=== PATIENT | female | born 1980 | race Caucasian/White ===

== ENCOUNTER 2016-07-20 17:37 | Day surgery (SDC) | payer MEDICAID ==
[~2016-07-20 17:37] MED LIST: SUCCINYLCHOLINE CHLORIDE INJ 200 MG/10 ML VIAL ONE
--- NOTE | 2016-07-20 17:45 | ER Document Report ---
ED GI/ - General Mode of Arrival: Medic Information source: Patient, Emergency Med Personnel TRAVEL OUTSIDE OF THE U.[place] IN LAST 30 DAYS: No - HPI Patient complains to provider of: Vaginal bleeding Associated symptoms: Other - See above <MAY ROSS - Last Filed: 07/20/16 18:35> <BRAYANADRIENNE - Last Filed: 07/20/16 18:54> - General Chief Complaint: Vag Bleeding, +preg <12wks Stated Complaint: vaginal bleeding Notes: Patient is a 35 year old female who presents to the emergency department via EMS for heavy vaginal bleeding while . Patient reports she was at the Ob 5 days ago and was told the fetus had stopped growing at 6 weeks in uterus, had no heartbeat, and she was going to have a natural miscarriage, patient was given rhogam. Per EMS, patient has stated she started spotting about 2 days ago and today she had bent over to berry picker her 5 month old child and felt wetness, when she went to the bathroom she started passing clots. EMS state she was still actively bleeding en route and that they did not notice any tissue passing nor did they see any tissue in the patient's toilet. EMS report patient' s color has improved and her BP has risen. Patient complains of feeling tired and cold. Patient had a miscarriage last year that did not require a D&C and she gave 5 months ago. COMMUNITY HEALTH PROGRAM REPRESENTATIVE: Dr. Rojas (MAY ROSS) - Related Data Allergies/Adverse Reactions: No Known Allergies Allergy (Verified 02/05/16 22:14) Past Medical History - General Information source: Patient - Social History Smoking Status: Current Every Day Smoker Frequency of alcohol use: None Family History: Reviewed & Not Pertinent Pulmonary Medical History: Reports: Hx Asthma - Immunizations Hx Diphtheria, Pertussis, Tetanus Vaccination: Yes <MYA ROSS - Last Filed: 07/20/16 18:35> Review of Systems - Review of Systems Constitutional: See HPI, Weakness - tired, Other - cold EENT: No symptoms reported Cardiovascular: No symptoms reported Respiratory: No symptoms reported Gastrointestinal: No symptoms reported Genitourinary: No symptoms reported Female Genitourinary: No symptoms reported Musculoskeletal: No symptoms reported Skin: No symptoms reported Hematologic/Lymphatic: No symptoms reported Neurological/Psychological: No symptoms reported -: Yes All other systems reviewed and negative <MAY ROSS - Last Filed: 07/20/16 18:35> Physical Exam - Vital signs Interpretation: Hypotensive, Tachycardic - HEENT Head: Normocephalic, Atraumatic - Respiratory Respiratory status: No respiratory distress - Cardiovascular Rhythm: Tachycardia - Genitourinary Vaginal bleeding: Heavy - Large clots with no tissue, patient actively hemorrhaging during exam, osce is about 1cm open. Concern for hemorrhagic shock - Extremities General upper extremity: Normal inspection General lower extremity: Normal inspection - Neurological Neuro grossly intact: Yes Cognition: Normal Orientation: AAOx4 [place] Coma Scale Eye Opening: Spontaneous [place] Coma Scale Verbal: Oriented [place] Coma Scale Motor: Obeys Commands [place] Coma Scale Total: 15 Speech: Normal - Psychological Associated symptoms: Normal affect, Normal mood <MAY ROSS - Last Filed: 07/20/16 18:35> <ADRIENNE SCHMIDT - Last Filed: 07/20/16 18:54> - Vital signs Vitals: Resp Pulse Ox 15 96 07/20/16 18:04 07/20/16 18:04 (ADRIENNE SCHMIDT) Course - Laboratory Result Diagrams: 07/20/16 17:45 07/20/16 17:45 <MAY ROSS - Last Filed: 07/20/16 18:35> - Laboratory Result Diagrams: 07/20/16 17:45 07/20/16 17:45 <ADRIENNE SCHMIDT - Last Filed: 07/20/16 18:54> - Re-evaluation Re-evalutation: 07/20/16 18:50 Patient is actively hemorrhaging with large clots emergency department. This all started about one hour prior to arrival. She has 12 week gestation which reportedly stopped growing at 6 weeks with no heart rate. She was going to miscarry "naturally"at home. When she started passing blood and clots she called 911. Vaginal vault full with large clots and brisk bleeding. Patient is hypotensive. H&H is currently stable. Getting IV fluids. According to patient she has already received Rhogam 5 days ago. I have called Dr. Lucio who is on- call for OB and is also this patient's INTERACTIVE MEDIA PROJECT MANAGER. She is coming directly to the ED for evaluation and will take the patient to the OR for D&C. (ADRIENNE SCHMIDT) - Vital Signs Vital signs: Temp Pulse Resp BP Pulse Ox 14 81/44 L 98 07/20/16 18:08 07/20/16 18:08 07/20/16 18:08 (ADRIENNE SCHMIDT) - Laboratory Laboratory results interpreted by me: 07/20/16 17:45 Carbon Dioxide 21 L (ADRIENNE SCHMIDT) Critical Care Note <MAY ROSS - Last Filed: 07/20/16 18:35> - Critical Care Note Total time excluding time spent on procedures (mins): 40 <ADRIENNE SCHMIDT - Last Filed: 07/20/16 18:54> - Critical Care Note Comments: A total of 40 minutes with concern for hemorrhagic shock secondary to spontaneous . Significant time at bedside evaluating patient, managing hemodynamic status, consultation with INTERACTIVE MEDIA PROJECT MANAGER, review of records, labs, and counseling patient and family. (ADRIENNE SCHMIDT) Discharge <MAY ROSS - Last Filed: 07/20/16 18:35> - Discharge Admitting Provider: Khadijah Unit Admitted: OR <ADRIENNE SCHMIDT - Last Filed: 07/20/16 18:54> - Discharge Clinical Impression: complicated with hemorrhage Condition: Serious Disposition: ADMITTED INPATIENT Scribe Attestation: 07/20/16 18:53 I personally performed the services described in the documentation, reviewed and edited the documentation which was dictated to the scribe in my presence, and it accurately records my words and actions. (ADRIENNE SCHMIDT) Scribe Documentation - Scribe Written by Linn:: linn Jennings, 07/20/16, [id number] acting as scribe for :: Dr Suárez <MAY ROSS - Last Filed: 07/20/16 18:35>
[2016-07-20] MEDS ORDERED: NORMAL SALINE 1000 ML 1,000 ML IV ONE ×2 (17:48→18:28)
[2016-07-20 18:00] LABS: ABSOLUTE BASOPHILS # (AUTO) 0.1 10^3/uL (0.0-0.2); ABSOLUTE EOSINOPHILS # (AUTO) 0.1 10^3/uL (0.0-0.6); ABSOLUTE LYMPHOCYTES (AUTO) 2.3 10^3/uL (0.5-4.7); ABSOLUTE MONOCYTES (AUTO) 0.7 10^3/uL (0.1-1.4); ABSOLUTE NEUT (AUTO) 5.4 10^3/uL (1.7-8.2); BASOPHILS % (AUTO) 0.6 % (0-2); EOSINOPHILS % (AUTO) 0.7 % (0-6); HEMOGLOBIN 12.1 g/dL (12.0-15.5); HGB HCT DIFFERENCE 0.3; LYMPHOCYTES % (AUTO) 27.3 % (13-45); MEAN CORPUSCULAR HEMOGLOBIN 30.9 pg (27.0-33.4); MEAN CORPUSCULAR HGB CONC 33.5 g/dL (32.0-36.0); MEAN CORPUSCULAR VOLUME 92 fl (80-97); MONOCYTES % (AUTO) 7.9 % (3-13); RED BLOOD COUNT 3.91 10^6/uL (3.72-5.28); SEGMENTED NEUTROPHILS % (AUTO) 63.5 % (42-78); WHITE BLOOD COUNT 8.4 10^3/uL (4.0-10.5)
[2016-07-20] MEDS ORDERED: ONDANSETRON HCL INJ/PF 4 MG/2 ML SDV ONE ×2 (18:03→18:47)
[2016-07-20 18:17] LABS: ANION GAP 12 (5-19); BLOOD UREA NITROGEN 8 mg/dL (7-20); CALCIUM 9.4 mg/dL (8.4-10.2); CARBON DIOXIDE 21 mmol/L (22-30); CHLORIDE 106 mmol/L (98-107); CREATININE RESULT 0.62 mg/dL (0.52-1.25); GLUCOSE 94 mg/dL (75-110); POTASSIUM 4.1 mmol/L (3.6-5.0); SODIUM 138.9 mmol/L (137-145)
[2016-07-20] MEDS ORDERED: MIDAZOLAM 2 MG/2 ML INJ ONE (18:47)
[2016-07-20] MEDS ORDERED: HYDROMORPHONE HCL INJ/PF 2 MG/ML AMPULE ONE (18:47)
[2016-07-20] MEDS ORDERED: DEXAMETHASONE SOD PHOSPHATE INJ 4 MG/1 ML VIAL ONE (18:48)
[2016-07-20] MEDS ORDERED: ACETAMINOPHEN 0 ML IV ONE (18:48)
[2016-07-20] MEDS ORDERED: PROPOFOL INJ 200 MG/20 ML VIAL IV ONE (18:48)
[2016-07-20] MEDS ORDERED: MISOPROSTOL 0.1 MG TABLET ONE (18:53)
[2016-07-20] MEDS ORDERED: NORMAL SALINE 250 ML IV PRN (18:56)
[2016-07-20] MEDS ORDERED: MORPHINE SULFATE 10 MG/ML INJ ONE (18:56)
[2016-07-20] MEDS ORDERED: CEFAZOLIN INJ 1 GM VIAL ONE (19:25)
[2016-07-20] MEDS ORDERED: PROMETHAZINE HCL INJ 25 MG/1 ML VIAL IV PRN ×2 (20:01)
[2016-07-20] MEDS ORDERED: FENTANYL CITRATE INJ/PF 100 MCG/2 ML AMPUL IV PRN ×3 (20:01)
[2016-07-20] MEDS ORDERED: MEPERIDINE HCL/PF INJ 25 MG/1 ML DISP.SYRIN IV PRN (20:01)
[2016-07-20] MEDS ORDERED: DIPHENHYDRAMINE HCL 50 MG/ML VIAL IV PRN (20:01)
[2016-07-20] MEDS ORDERED: OXYCODONE-ACETAMINOPHEN 5-325 MG TABLET PO PRN ×2 (20:01)
[2016-07-20] MEDS ORDERED: MORPHINE SULFATE 10 MG/ML INJ IV PRN (20:01)
[2016-07-20] MEDS ORDERED: ONDANSETRON HCL INJ/PF 4 MG/2 ML SDV IV PRN (20:01)
[2016-07-20 20:22] LABS: ABSOLUTE BASOPHILS # (AUTO) 0.1 10^3/uL (0.0-0.2); ABSOLUTE LYMPHOCYTES (AUTO) 1.4 10^3/uL (0.5-4.7); ABSOLUTE MONOCYTES (AUTO) 0.6 10^3/uL (0.1-1.4); ABSOLUTE NEUT (AUTO) 13.8 10^3/uL (1.7-8.2); BASOPHILS % (AUTO) 0.5 % (0-2); EOSINOPHILS % (AUTO) 0.1 % (0-6); HEMATOCRIT 27.9 % (36.0-47.0); HGB HCT DIFFERENCE -0.3; LYMPHOCYTES % (AUTO) 9.1 % (13-45); MEAN CORPUSCULAR HEMOGLOBIN 30.8 pg (27.0-33.4); MEAN CORPUSCULAR HGB CONC 33.1 g/dL (32.0-36.0); MEAN CORPUSCULAR VOLUME 93 fl (80-97); MONOCYTES % (AUTO) 3.6 % (3-13); RED CELL DISTRIBUTION WIDTH 13.8 % (11.5-14.0); SEGMENTED NEUTROPHILS % (AUTO) 86.7 % (42-78); WHITE BLOOD COUNT 15.9 10^3/uL (4.0-10.5)
[2016-07-20 20:30] LABS: HEMOGLOBIN 9.2 g/dL (12.0-15.5)
[2016-07-20 20:35] LABS: PARTIAL THROMBOPLASTIN TIME 24.2 SEC (23.5-35.8)
[2016-07-20] MEDS ORDERED: RINGERS SOLUTION,LACTATED 1,000 ML IV PRN (22:14)
[2016-07-21] MEDS ORDERED: IBUPROFEN 800 MG TABLET PO PRN (05:31)
[2016-07-21 05:53] LABS: HEMATOCRIT 23.5 % (36.0-47.0); HGB HCT DIFFERENCE 0.2; MEAN CORPUSCULAR HEMOGLOBIN 30.6 pg (27.0-33.4); MEAN CORPUSCULAR HGB CONC 33.5 g/dL (32.0-36.0); MEAN CORPUSCULAR VOLUME 91 fl (80-97); RED BLOOD COUNT 2.57 10^6/uL (3.72-5.28); RED CELL DISTRIBUTION WIDTH 13.9 % (11.5-14.0); WHITE BLOOD COUNT 9.1 10^3/uL (4.0-10.5)
[2016-07-21 05:55] LABS: HEMOGLOBIN 7.9 g/dL (12.0-15.5)
--- NOTE | 2016-07-21 07:08 | DISCHARGE SUMMARY E ---
Discharge Summary NAME: EARLE MARKHAM : 1980 AGE: 35Y ADMITTED: 07/20/2016 DISCHARGED: 07/21/2016 INDICATION FOR ADMISSION: Incomplete with hemorrhage and acute blood loss. HOSPITAL COURSE: The patient is a 35-year-old, para 2, who was admitted with an incomplete AB hemorrhaging. She had a vagal episode and was taken to the operating room and Suction D and C was performed. She was observed closely postop due to her volume of blood that she lost preoperatively. On admission, her hematocrit had been 36 and immediately postop it was 27.9. The following morning hematocrit was 23.5. However, the patient was able to ambulate without any lightheadedness or dizziness. She noted that her bleeding was scant. She denied any shortness of breath. She was tolerating p.o without any nausea or vomiting. PT/PTT had been obtained immediately postop as well and they were within normal range. DISCHARGE DIAGNOSES: 1. Incomplete status post suction dilation and curettage for acute hemorrhage. 2. Acute blood loss anemia. PLAN: The patient will be discharged home. She has Motrin 800 mg at home that she can take up to 3 times a day for cramping. She is given a prescription for doxycycline 100 mg p.o. b.i.d. for 5 days. She is advised to follow up in clinic 2 weeks, sooner should problems arise. ACTIVITY: Pelvic rest. DIET: Regular. She should also be on dftl-fun-roxccgb iron. DICTATING PHYSICIAN: BLANQUITA CALHOUN M.D. [id number] PHY#: [id number] [id number] JOB#: [id number] ACCT: [id number] cc:BLANQUITA CALHOUN M.D. > MTDSerg
[2016-07-21 08:10] VITALS: BP 115/51
[2016-07-21] MEDS ORDERED: DOXYCYCLINE HYCLATE 100 MG TABLET PO SCH (10:00)
--- NOTE | 2016-07-21 10:46 | L&D Admission Assessment ---
LD ADM ASMT Datetime Report Generated by CPN: 07/21/2016 10:45 WEIGHT Weight (lb): 213 (07/21/2016 08:19:QS system process) Weight (lb): 213 (07/21/2016 08:17:QS system process) Weight (kg): 96.8 (07/21/2016 08:19:QS system process) Weight (kg): 96.8 (07/21/2016 08:17:QS system process) BMI: 37.7 (07/21/2016 08:19:QS system process)
--- NOTE | 2016-07-21 10:46 | L&D General Admission ---
General Admit Datetime Report Generated by CPN: 07/21/2016 10:45 INFORMATION Patient Age: 35 (07/21/2016 08:17:QS system process) CARE Height (in): 63 (07/21/2016 08:19:QS system process) Height (in): 63 (07/21/2016 08:17:QS system process) ALLERGIES Medication Allergies: No Known Allergies (02/05/2016) (07/21/2016 08:17:QS system process) DEMOGRAPHICS Address: [address] [place] [id number] (07/21/2016 08:17:QS system process) Zipcode: [id number] (07/21/2016 08:17:QS system process) Home (07/21/2016 08:17:QS system process) N: [id number] (07/21/2016 08:17:QS system process) Next of Kin Name: KAYLAH MARKHAM (07/21/2016 08:17:QS system process) Next of Kin (07/21/2016 08:17:QS system process) Next of Kin Relationship: SPO (07/21/2016 08:17:QS system process) Date of : 1980 (07/21/2016 08:17:QS system process) Marital Status: (07/21/2016 08:17:QS system process) Sex: Female (07/21/2016 08:17:QS system process) Race: (07/21/2016 08:17:QS system process) Ethnicity: Non- or (07/21/2016 08:17:QS system process) Uatsdin: None (07/21/2016 08:17:QS system process)
--- NOTE | 2016-07-22 14:34 | OPERATIVE REPORT E ---
Operative Report NAME: EARLE MARKHAM : 1980 AGE: 35Y DATE OF SURGERY: ROOM: 210 PREOPERATIVE DIAGNOSIS: Incomplete AB with hemorrhage and acute blood loss. POSTOPERATIVE DIAGNOSIS: Incomplete AB with hemorrhage and acute blood loss. OPERATION: Suction D and C. SURGEON: BLANQUITA CALHOUN M.D. ANESTHESIA: General endotracheal. ESTIMATED BLOOD LOSS: Patient had lost approximately 1500 mL in the emergency room prior to the procedure. EBL during the procedure was minimal. FINDINGS: The cervix was open. There were products of conception in the cervix and uterus. At the end of the procedure the uterus was clean and involuted normally. DESCRIPTION OF PROCEDURE: After discussing risks, benefits, and alternatives of the procedure and obtaining informed verbal consent, the patient was taken to the operating room. She had lost consciousness in the emergency room prior to signing the consent. She was moved to the operating room table, placed in the dorsal lithotomy and general anesthesia achieved. She was prepped and draped in the usual standard fashion. A speculum was placed in the vagina. The cervix was opened. The anterior aspect of the cervix was grasped with a single tooth tenaculum. The #8 curved curette was attached to suction and suction D and C was performed in the standard fashion until the cavity was clean. The uterus involuted normally by the end of the procedure. All instruments were removed, hemostasis was assured and patient was taken to recovery in stable condition. All sponge, needle, lap, and instrument counts were correct x2. DICTATING PHYSICIAN: BLANQUITA CALHOUN M.D. [id number] PHY#: [id number] ID: [id number] JOB#: [id number] ACCT: [id number] cc:BLANQUITA CALHOUN M.D. > MTDSerg
== END 2016-07-21 08:52 | disposition home or self-care (01) ==
LOC: LC 17:37 → ER 17:37 → UNDOADMIN 19:28 → EH 19:28 → 2N 19:40 → EH 21:10 → LC 07-21 08:52
PROVIDERS: ATTEND Emergency Medicine
PROC: 10D17ZZ Extraction of Products of Conception, Retained, Via Natural or Artificial Opening (ICD-10-PCS; principal; 2016-07-20 19:30)
DX: O02.1 Missed abortion (principal); O08.1 Delayed or excessive hemorrhage following ectopic and molar pregnancy; D62 Acute posthemorrhagic anemia; J45.20 Mild intermittent asthma, uncomplicated; F17.210 Nicotine dependence, cigarettes, uncomplicated
CPT/HCPCS: 59820; 86900; 86901; 36415; 86870; 86850; 86922; 85025; 85027; 85610; 85730; 80048; 86920; 88305 ×2; J2250; J0690; J3490 ×2; J1100; J2270; J1170; J0330; J2405; J7030; J7120; J2704; 1965; J0131

== ENCOUNTER 2016-07-22 10:20 | Emergency (ER) | payer MEDICAID ==
--- NOTE | 2016-07-22 10:35 | ER Document Report ---
ED Medical Screen (RME) - General Stated Complaint: STOMACH PAIN Notes: Patient is a 35 old female history here [address] Lucio for spontaneous requiring D&C. Patient is tachycardic with myalgias and was referred here by Dr. Lucio. I have greeted and performed a rapid initial assessment of this patient. A comprehensive ED assessment and evaluation of the patient, analysis of test results and completion of the medical decision making process will be conducted by additional ED providers. TRAVEL OUTSIDE OF THE U.[place] IN LAST 30 DAYS: No - Related Data Allergies/Adverse Reactions: No Known Allergies Allergy (Verified 02/05/16 22:14) Past Medical History Pulmonary Medical History: Reports: Hx Asthma - Immunizations Hx Diphtheria, Pertussis, Tetanus Vaccination: Yes
[2016-07-22 11:22] LABS: HEMATOCRIT 23.3 % (36.0-47.0); HGB HCT DIFFERENCE -0.2; MEAN CORPUSCULAR HEMOGLOBIN 31.2 pg (27.0-33.4); MEAN CORPUSCULAR HGB CONC 33.2 g/dL (32.0-36.0); MEAN CORPUSCULAR VOLUME 94 fl (80-97); RED BLOOD COUNT 2.47 10^6/uL (3.72-5.28); RED CELL DISTRIBUTION WIDTH 14.3 % (11.5-14.0); WHITE BLOOD COUNT 7.8 10^3/uL (4.0-10.5)
[2016-07-22 11:26] LABS: HEMOGLOBIN 7.7 g/dL (12.0-15.5)
[2016-07-22 11:28] LABS: BASOPHILS % (MANUAL) 0 % (0-2); EOSINOPHILS % (MANUAL) 0 % (0-6); LYMPHOCYTES % (MANUAL) 37 % (13-45); TOTAL CELLS COUNTED 100
[2016-07-22 11:29] LABS: RBC MORPHOLOGY COMMENT NORMO-CYTIC/CHROMIC
[2016-07-22 11:37] LABS: ALANINE AMINOTRANSFERASE 28 U/L (9-52); ALBUMIN 3.5 g/dL (3.5-5.0); ALKALINE PHOSPHATASE 40 U/L (38-126); ANION GAP 11 (5-19); ASPARTATE AMINO TRANSFERASE 17 U/L (14-36); BILIRUBIN,TOTAL 0.2 mg/dL (0.2-1.3); BLOOD UREA NITROGEN 11 mg/dL (7-20); CALCIUM 9.2 mg/dL (8.4-10.2); CARBON DIOXIDE 24 mmol/L (22-30); CHLORIDE 109 mmol/L (98-107); CREATINE KINASE 83 U/L (30-135); CREATININE RESULT 0.64 mg/dL (0.52-1.25); GLUCOSE 91 mg/dL (75-110); POTASSIUM 3.9 mmol/L (3.6-5.0); TOTAL PROTEIN 6.3 g/dL (6.3-8.2)
[2016-07-22] MEDS ORDERED: NORMAL SALINE 250 ML IV PRN ×2 (12:33)
[2016-07-22] MEDS ORDERED: DOXYCYCLINE HYCLATE 100 MG TABLET PO ONE (12:57)
[2016-07-22] MEDS ORDERED: KETOROLAC TROMETHAMINE INJ/PF 30 MG/1 ML SDV IV ONE (14:41)
--- NOTE | 2016-07-22 15:47 | ER Document Report ---
ED General - General Chief Complaint: Abdominal Pain Stated Complaint: STOMACH PAIN TRAVEL OUTSIDE OF THE [place] IN LAST 30 DAYS: No - HPI Patient complains to provider of: diffuse myalgias generalized weakness Onset: Yesterday Notes: Patient coming in for evaluation for generalized weakness and diffuse myalgias. Patient had a D and see performed on Friday prior to her arrival here. Patient was discharged told to return due to her symptoms. Patient denies fevers chills nausea vomiting. Patient states that her labia have swollen. Otherwise patient is tachycardic and pale. Patient states that the bleeding has improved. - Related Data Allergies/Adverse Reactions: No Known Allergies Allergy (Verified 07/22/16 10:38) Past Medical History - Social History Smoking Status: Current Every Day Smoker Chew tobacco use (# tins/day): No Frequency of alcohol use: None Drug Abuse: None Family History: Reviewed & Not Pertinent Patient has suicidal ideation: No Patient has homicidal ideation: No Pulmonary Medical History: Reports: Hx Asthma Renal/ Medical History: Denies: Hx Peritoneal Dialysis Past Surgical History: Reports: Hx Hysterectomy - Immunizations Hx Diphtheria, Pertussis, Tetanus Vaccination: Yes Review of Systems - Review of Systems Constitutional: No symptoms reported EENT: No symptoms reported Cardiovascular: No symptoms reported Respiratory: No symptoms reported Gastrointestinal: No symptoms reported Genitourinary: Other - Vaginal pain Female Genitourinary: No symptoms reported Musculoskeletal: Muscle pain Skin: No symptoms reported Hematologic/Lymphatic: No symptoms reported Neurological/Psychological: No symptoms reported -: Yes All other systems reviewed and negative Physical Exam - Vital signs Vitals: Temp Pulse Resp BP Pulse Ox 98.3 F 113 H 18 134/73 H 100 07/22/16 10:38 07/22/16 10:38 07/22/16 10:38 07/22/16 10:38 07/22/16 10:38 Interpretation: Tachycardic - General General appearance: Appears well, Alert - HEENT Head: Normocephalic, Atraumatic Eyes: Normal Pupils: PERRL - Respiratory Respiratory status: No respiratory distress Chest status: Nontender Breath sounds: Normal Chest palpation: Normal - Cardiovascular Rhythm: Regular Heart sounds: Normal auscultation Murmur: No - Abdominal Inspection: Normal Distension: No distension Bowel sounds: Normal Tenderness: Nontender Organomegaly: No organomegaly - Genitourinary External exam: Other - Swelling of bilateral labia signs of abscess or infection Speculum exam: Other - Mild amount of bleeding Vaginal bleeding: Mild - Back Back: Normal, Nontender - Extremities General upper extremity: Normal inspection, Nontender, Normal color, Normal ROM , Normal temperature General lower extremity: Normal inspection, Nontender, Normal color, Normal ROM , Normal temperature, Normal weight bearing. No: Corona's sign - Neurological Neuro grossly intact: Yes Cognition: Normal Orientation: AAOx4 [place] Coma Scale Eye Opening: Spontaneous [place] Coma Scale Verbal: Oriented [place] Coma Scale Motor: Obeys Commands [place] Coma Scale Total: 15 Speech: Normal Motor strength normal: LUE, RUE, LLE, RLE Sensory: Normal - Psychological Associated symptoms: Normal affect, Normal mood - Skin Skin Temperature: Warm Skin Moisture: Dry Skin Color: Pale Course - Re-evaluation Re-evalutation: 07/22/16 15:46 Lab results showed anemia with hemoglobin 7.7. Discussed with the patient's OB/ COLLEGE SPORTS ASSISTANT Dr. Catalina Lucio. Patient will be given 2 units of blood. Patient also be given a dose of ketorolac for myalgias more likely this is from the surgery. No signs of any infection of the patient's genitalia. Patient will be discharged home after transfusion - Vital Signs Vital signs: Temp Pulse Resp BP Pulse Ox 98.7 F 98 21 H 111/66 97 07/22/16 14:50 07/22/16 14:50 07/22/16 15:01 07/22/16 15:01 07/22/16 15:01 - Laboratory Result Diagrams: 07/22/16 10:55 07/22/16 10:55 Laboratory results interpreted by me: 07/22/16 07/22/16 07/22/16 10:55 10:55 10:55 RBC 2.47 L Hgb 7.7 L Hct 23.3 L RDW 14.3 H Chloride 109 H Crossmatch See Detail Discharge - Discharge Clinical Impression: Anemia requiring transfusions, Myalgia Condition: Good Disposition: HOME, SELF-CARE Instructions: Myalagia (Muscle Pain) ([facility]), Anemia ([facility]) Additional Instructions: Please follow-up with your PELLETISING EXTRUDER OPERATOR as scheduled. Your laboratory studies showed anemia today despite he gave you 2 units of blood. Return to ER for concerning symptoms.
[2016-07-22 20:18] VITALS: BP 105/48
== END 2016-07-22 20:25 | disposition home or self-care (01) ==
LOC: ER 10:20
DX: D64.9 Anemia, unspecified (principal); M79.1 Myalgia; R53.1 Weakness; R10.2 Pelvic and perineal pain; R00.0 Tachycardia, unspecified; Z98.890 Other specified postprocedural states; F17.200 Nicotine dependence, unspecified, uncomplicated; J45.909 Unspecified asthma, uncomplicated; Z90.710 Acquired absence of both cervix and uterus
CPT/HCPCS: 99285; 96374; 86900; 86901; 36415; 87210; 36430; 86870; 86850; 86922; 82550; 85025; 80053; 86920; P9016; J3490; J1885

== ENCOUNTER 2016-07-24 12:52 | Emergency (ER) | payer MEDICAID ==
--- NOTE | 2016-07-24 13:10 | ER Document Report ---
ED Medical Screen (RME) - General Stated Complaint: HEADACHE Notes: 35 yo female c/o headache since last night. pt had emergency D&C on Friday, came back on Friday for blood trasfusions. minimal vaginal bleeding. + dizzy with postural changes TRAVEL OUTSIDE OF THE [place] IN LAST 30 DAYS: No - Related Data Allergies/Adverse Reactions: No Known Allergies Allergy (Verified 07/22/16 10:38) Past Medical History Pulmonary Medical History: Reports: Hx Asthma Renal/ Medical History: Denies: Hx Peritoneal Dialysis Past Surgical History: Reports: Hx Hysterectomy - Immunizations Hx Diphtheria, Pertussis, Tetanus Vaccination: Yes Physical Exam - Vital signs Vitals: Temp Pulse Resp BP Pulse Ox 98.9 F 99 16 134/88 H 100 07/24/16 13:03 07/24/16 13:03 07/24/16 13:03 07/24/16 13:03 07/24/16 13:03 Course - Vital Signs Vital signs: Temp Pulse Resp BP Pulse Ox 98.9 F 99 16 134/88 H 100 07/24/16 13:03 07/24/16 13:03 07/24/16 13:03 07/24/16 13:03 07/24/16 13:03
[2016-07-24 13:36] LABS: ABSOLUTE EOSINOPHILS # (AUTO) 0.1 10^3/uL (0.0-0.6); ABSOLUTE LYMPHOCYTES (AUTO) 1.9 10^3/uL (0.5-4.7); ABSOLUTE MONOCYTES (AUTO) 0.5 10^3/uL (0.1-1.4); ABSOLUTE NEUT (AUTO) 4.9 10^3/uL (1.7-8.2); BASOPHILS % (AUTO) 0.4 % (0-2); EOSINOPHILS % (AUTO) 0.9 % (0-6); HEMATOCRIT 27.1 % (36.0-47.0); HEMOGLOBIN 9.3 g/dL (12.0-15.5); HGB HCT DIFFERENCE 0.8; LYMPHOCYTES % (AUTO) 25.6 % (13-45); MEAN CORPUSCULAR HEMOGLOBIN 31.6 pg (27.0-33.4); MEAN CORPUSCULAR HGB CONC 34.5 g/dL (32.0-36.0); MEAN CORPUSCULAR VOLUME 92 fl (80-97); MONOCYTES % (AUTO) 6.5 % (3-13); RED BLOOD COUNT 2.96 10^6/uL (3.72-5.28); RED CELL DISTRIBUTION WIDTH 14.4 % (11.5-14.0); SEGMENTED NEUTROPHILS % (AUTO) 66.6 % (42-78); WHITE BLOOD COUNT 7.4 10^3/uL (4.0-10.5)
--- NOTE | 2016-07-24 16:11 | ER Document Report ---
ED General - General Chief Complaint: Headache Stated Complaint: HEADACHE TRAVEL OUTSIDE OF THE [place] IN LAST 30 DAYS: No - HPI Patient complains to provider of: headache lightheadedness dizziness Notes: Patient coming in for evaluation of headache lightheaded dizziness. Patient was recently underwent a D&C and blood transfusion. Patient states symptoms return similar to prior before receiving the blood transfusion. Patient states she was referred to the ER by her EMPLOYEE RELATIONS ADMINISTRATOR. Denies any fevers chills nausea vomiting diarrhea chest pain abdominal pain. Otherwise patient states most of her symptoms occur when she exerts hurting himself. Patient states chills as the sound of her heartbeat with in her ear. - Related Data Allergies/Adverse Reactions: No Known Allergies Allergy (Verified 07/24/16 13:07) Past Medical History - Social History Smoking Status: Current Every Day Smoker Chew tobacco use (# tins/day): No Frequency of alcohol use: None Drug Abuse: None Family History: Reviewed & Not Pertinent Patient has suicidal ideation: No Patient has homicidal ideation: No Pulmonary Medical History: Reports: Hx Asthma Renal/ Medical History: Denies: Hx Peritoneal Dialysis Past Surgical History: Reports: Hx Hysterectomy - Immunizations Hx Diphtheria, Pertussis, Tetanus Vaccination: Yes Review of Systems - Review of Systems Constitutional: Other - Dizziness headache EENT: No symptoms reported Cardiovascular: No symptoms reported Respiratory: No symptoms reported Gastrointestinal: No symptoms reported Genitourinary: No symptoms reported Female Genitourinary: No symptoms reported Musculoskeletal: No symptoms reported Skin: No symptoms reported Hematologic/Lymphatic: No symptoms reported Neurological/Psychological: No symptoms reported -: Yes All other systems reviewed and negative Physical Exam - Vital signs Vitals: Temp Pulse Resp BP Pulse Ox 98.9 F 99 16 134/88 H 100 07/24/16 13:03 07/24/16 13:03 07/24/16 13:03 07/24/16 13:03 07/24/16 13:03 Interpretation: Normal - General General appearance: Appears well, Alert - HEENT Head: Normocephalic, Atraumatic Eyes: Normal Conjunctiva: Normal Cornea: Normal Eyelashes: Normal Pupils: PERRL Ears: Normal External canal: Normal Tympanic membrane: Normal Nasal: Normal Mouth/Lips: Normal Mucous membranes: Normal Pharynx: Normal Neck: Normal - Respiratory Respiratory status: No respiratory distress Chest status: Nontender Breath sounds: Normal Chest palpation: Normal - Cardiovascular Rhythm: Regular Heart sounds: Normal auscultation Murmur: No - Abdominal Inspection: Normal Distension: No distension Bowel sounds: Normal Tenderness: Nontender Organomegaly: No organomegaly - Back Back: Normal, Nontender - Extremities General upper extremity: Normal inspection, Nontender, Normal color, Normal ROM , Normal temperature General lower extremity: Normal inspection, Nontender, Normal color, Normal ROM , Normal temperature, Normal weight bearing. No: Corona's sign - Neurological Neuro grossly intact: Yes Cognition: Normal Orientation: AAOx4 [place] Coma Scale Eye Opening: Spontaneous Gualberto Coma Scale Verbal: Oriented [place] Coma Scale Motor: Obeys Commands [place] Coma Scale Total: 15 Speech: Normal Motor strength normal: LUE, RUE, LLE, RLE Sensory: Normal - Psychological Associated symptoms: Normal affect, Normal mood - Skin Skin Temperature: Warm Skin Moisture: Dry Skin Color: Normal Course - Re-evaluation Re-evalutation: 07/24/16 16:11 Patient that her hemoglobin today is 9.3. Although patient's baseline prior to this and D&C was around 1314. Splint patient that she is anemic and she is experiencing symptoms of anemia however this time she would not be that of blood transfusion to continue taking her iron tablets and vitamin C. Patient states understanding will discharge home did discuss case with Dr. Hsieh consumer educator for EMPLOYEE RELATIONS ADMINISTRATOR - Vital Signs Vital signs: Temp Pulse Resp BP Pulse Ox 98.9 F 99 16 134/88 H 100 07/24/16 13:03 07/24/16 13:03 07/24/16 13:03 07/24/16 13:03 07/24/16 13:03 - Laboratory Result Diagrams: 07/24/16 13:20 Laboratory results interpreted by me: 07/24/16 13:20 RBC 2.96 L Hgb 9.3 L Hct 27.1 L RDW 14.4 H Discharge - Discharge Clinical Impression: Feeling unwell Anemia Qualifiers: Anemia type: unspecified type Qualified Code(s): D64.9 - Anemia, unspecified Condition: Good Disposition: HOME, SELF-CARE Additional Instructions: Your symptoms today are more likely related to your continued anemia. Yourr hemoglobin today is 9.3 which is not a level we would need to transfuse you however from this is lower than your baseline hemoglobin of 13-14. Due to this anemia you can expect is still experiencing dizziness lightheadedness shortness of breath upon exertion. This will improve as you develop more red blood cells which make up your hemoglobin. Please continue your iron tablets. Also recommend trying to take daily doses of vitamin C by drinking or great juice. Please refrain from strenuous activity such as sporting events. When going from lying to sitting to standing please do this very slowly. Follow-up with your EMPLOYEE RELATIONS ADMINISTRATOR
[2016-07-24 16:18] VITALS: BP 123/70
== END 2016-07-24 16:18 | disposition home or self-care (01) ==
LOC: ER 12:52
DX: D64.9 Anemia, unspecified (principal); R51 Headache; R42 Dizziness and giddiness; F17.200 Nicotine dependence, unspecified, uncomplicated
CPT/HCPCS: 36415; 85025; 99284

== ENCOUNTER 2016-11-26 12:20 | Emergency (ER) | payer MEDICAID ==
--- NOTE | 2016-11-26 12:52 | ER Document Report ---
ED Medical Screen (RME) - General Chief Complaint: Abdominal Cramping Stated Complaint: ABDOMINAL PAIN Time Seen by Provider: 11/26/16 12:43 Notes: Patient is a 36-year-old female presenting to the emergency department for left- sided abdominal cramping. Patient states she is a 7 or 8 weeks based off her last menstrual and not an ultrasound. Patient has been seen at the [facility] for this. Patient also has some nausea and vomiting which she states is normal with her morning sickness. Patient states laying on her right side causing more pain to the left side. Patient also complains of some low back pain over the last 3 days. Patient has had normal bowel movements and denies any dysuria, bloody stool, vaginal discharge or vaginal bleeding. Patient is A1. Patient states that in June she had a miscarriage and was brought in via EMS; patient had an emergency D&C with blood transfusions. Patient is a smoker but states she is trying to quit and is currently only smoking 1 cigarette a day. I have greeted and performed a rapid initial assessment of this patient. A comprehensive ED assessment and evaluation of the patient, analysis of test results and completion of the medical decision making process will be conducted by additional ED providers. TRAVEL OUTSIDE OF THE [place] IN LAST 30 DAYS: No - Related Data Allergies/Adverse Reactions: No Known Allergies Allergy (Verified 11/26/16 12:38) Past Medical History Pulmonary Medical History: Reports: Hx Asthma Renal/ Medical History: Denies: Hx Peritoneal Dialysis Past Surgical History: Reports: Hx Hysterectomy - Immunizations Hx Diphtheria, Pertussis, Tetanus Vaccination: Yes Physical Exam - Vital signs Vitals: Temp Pulse Resp BP Pulse Ox 98.3 F 108 H 20 131/81 H 98 11/26/16 12:34 11/26/16 12:34 11/26/16 12:34 11/26/16 12:34 11/26/16 12:34 - Notes Notes: GENERAL: Alert, interacts well. No acute distress. LUNGS: Clear to auscultation bilaterally, no wheezes, rales, or rhonchi. No respiratory distress. HEART: Regular rate and rhythm. No murmurs, gallops, or rubs. ABDOMEN: Soft, non-tender. Course - Vital Signs Vital signs: Temp Pulse Resp BP Pulse Ox 98.3 F 108 H 20 131/81 H 98 11/26/16 12:34 11/26/16 12:34 11/26/16 12:34 11/26/16 12:34 11/26/16 12:34 Scribe Documentation - Scribe Written by Scribe:: Jaquelin Musa, 11/26/16 12:55 acting as scribe for :: Gala
[2016-11-26 13:29] LABS: ABSOLUTE LYMPHOCYTES (AUTO) 1.5 10^3/uL (0.5-4.7); ABSOLUTE MONOCYTES (AUTO) 0.9 10^3/uL (0.1-1.4); BASOPHILS % (AUTO) 0.3 % (0-2); EOSINOPHILS % (AUTO) 0.4 % (0-6); HEMATOCRIT 40.9 % (36.0-47.0); HEMOGLOBIN 13.2 g/dL (12.0-15.5); HGB HCT DIFFERENCE -1.3; LYMPHOCYTES % (AUTO) 14.2 % (13-45); MEAN CORPUSCULAR HEMOGLOBIN 27.5 pg (27.0-33.4); MEAN CORPUSCULAR HGB CONC 32.4 g/dL (32.0-36.0); MEAN CORPUSCULAR VOLUME 85 fl (80-97); MONOCYTES % (AUTO) 8.4 % (3-13); RED BLOOD COUNT 4.82 10^6/uL (3.72-5.28); SEGMENTED NEUTROPHILS % (AUTO) 76.7 % (42-78); WHITE BLOOD COUNT 10.4 10^3/uL (4.0-10.5)
[2016-11-26 13:33] LABS: APPEARANCE,URINE SLIGHTLY-CLOUDY; BILIRUBIN,URINE NEGATIVE (NEGATIVE); GLUCOSE, URINE NEGATIVE (NEGATIVE); KETONES,URINE NEGATIVE (NEGATIVE); LEUKOCYTE ESTERASE,URINE NEGATIVE (NEGATIVE); NITRITE,URINE NEGATIVE (NEGATIVE); PROTEIN,URINE NEGATIVE (NEGATIVE); URINE SPECIFIC GRAVITY 1.026; UROBILINOGEN,URINE NEGATIVE mg/dL (<2.0)
[2016-11-26] MEDS ORDERED: NORMAL SALINE 1000 ML 1,000 ML IV ONE (14:25)
[2016-11-26 14:43] LABS: ALANINE AMINOTRANSFERASE 34 U/L (9-52); ALBUMIN 4.2 g/dL (3.5-5.0); ALKALINE PHOSPHATASE 54 U/L (38-126); ANION GAP 12 (5-19); ASPARTATE AMINO TRANSFERASE 41 U/L (14-36); BILIRUBIN,DIRECT 0.3 mg/dL (0.0-0.4); BILIRUBIN,TOTAL 0.4 mg/dL (0.2-1.3); BLOOD UREA NITROGEN 11 mg/dL (7-20); CALCIUM 9.5 mg/dL (8.4-10.2); CARBON DIOXIDE 21 mmol/L (22-30); CHLORIDE 108 mmol/L (98-107); CREATININE RESULT 0.63 mg/dL (0.52-1.25); GLUCOSE 105 mg/dL (75-110); POTASSIUM 4.2 mmol/L (3.6-5.0); SODIUM 141.1 mmol/L (137-145); TOTAL PROTEIN 7.6 g/dL (6.3-8.2)
--- NOTE | 2016-11-26 15:06 | ER Document Report ---
ED GI/ - General Mode of Arrival: Ambulatory Information source: Patient TRAVEL OUTSIDE OF THE [place] IN LAST 30 DAYS: No - HPI Patient complains to provider of: Abdominal pain Onset: This morning Timing/Duration: Sudden Location: [facility] Associated symptoms: Other - <DARREN RESTREPO - Last Filed: 11/26/16 21:17> <MONO BRANCH - Last Filed: 11/26/16 22:23> - General Chief Complaint: Abdominal Cramping Stated Complaint: ABDOMINAL PAIN Time Seen by Provider: 11/26/16 12:43 Notes: Patient is a 36 year old female that presents to the emergency department today with complaints of abdominal pain which began at 0800. Patient states that her pain has not radiated since onset. Patient states she believes that she is approximately 7 week however she cannot remember when her last menstrual period was. Patient states her pain is exacerbated when lying on her right side. Patient denies any back pain, flank pain, dysuria, history of kidney stones, or vaginal bleeding. (DARREN RESTREPO) - Related Data Allergies/Adverse Reactions: No Known Allergies Allergy (Verified 11/26/16 12:38) Past Medical History - General Information source: Patient - Social History Smoking Status: Never Smoker Cigarette use (# per day): No Frequency of alcohol use: None Drug Abuse: None Lives with: Family Family History: Reviewed & Not Pertinent Patient has suicidal ideation: No Patient has homicidal ideation: No Pulmonary Medical History: Reports: Hx Asthma Past Surgical History: Reports: Hx Hysterectomy - Immunizations Hx Diphtheria, Pertussis, Tetanus Vaccination: Yes <DARREN RESTREPO - Last Filed: 11/26/16 21:17> Review of Systems - Review of Systems Constitutional: No symptoms reported EENT: No symptoms reported Cardiovascular: No symptoms reported Respiratory: No symptoms reported Gastrointestinal: See HPI, Abdominal pain Genitourinary: denies: Dysuria Female Genitourinary: denies: Vaginal bleeding Musculoskeletal: denies: Back pain Skin: No symptoms reported Hematologic/Lymphatic: No symptoms reported Neurological/Psychological: No symptoms reported -: Yes All other systems reviewed and negative <DARREN RESTREPO - Last Filed: 11/26/16 21:17> Physical Exam <DARREN RESTREPO - Last Filed: 11/26/16 21:17> <MONO BRANCH - Last Filed: 11/26/16 22:23> - Vital signs Vitals: Temp Pulse Resp BP Pulse Ox 98.3 F 108 H 20 131/81 H 98 11/26/16 12:34 11/26/16 12:34 11/26/16 12:34 11/26/16 12:34 11/26/16 12:34 - Notes Notes: Physical Exam: General: Alert, appears well. HEENT: Normocephalic. Atraumatic. PERRL. Extraocular movements intact. Oropharynx clear. Neck: Supple. Non-tender. Respiratory: No respiratory distress. Clear and equal breath sounds bilaterally. Cardiovascular: Regular rate and rhythm. Abdominal: Suprapubic abdominal tenderness with palpation. No distension. Normal Bowel Sounds. Back: Non-tender. No deformity or step off. Extremities: Moves all four extremities. Upper extremities: Normal inspection. Normal ROM. Lower extremities: Normal inspection. No edema. Normal ROM. Neurological: Normal cognition. AAOx4. Normal speech. Psychological: Normal affect. Normal Mood. Skin: Warm. Dry. Normal color. (DARREN RESTREPO) Course - Laboratory Result Diagrams: 11/26/16 13:10 11/26/16 13:10 <DARREN RESTREPO - Last Filed: 11/26/16 21:17> - Laboratory Result Diagrams: 11/26/16 13:10 11/26/16 13:10 - Diagnostic Test Radiology reviewed: Reports reviewed <MONO BRANCH - Last Filed: 11/26/16 22:23> - Re-evaluation Re-evalutation: 11/26/16 16:59 Updated on results, discharge planned. (DARREN RESTREPO) Patient presents with cramping in her lower abdomen. Patient is 5 weeks 1 day by ultrasound. No bleeding. No abnormalities on ultrasound or blood work. Patient will be discharged home after fluid bolus. States that she feels better after that. No urinary symptoms. She is to follow-up with OB/ [facility]. Patient is Rh- but again has had no bleeding. Stable for discharge. Return if any worsening or concerning symptoms. (MONO BRANCH) - Vital Signs Vital signs: Temp Pulse Resp BP Pulse Ox 98.7 F 82 16 119/87 H 100 11/26/16 17:08 11/26/16 17:08 11/26/16 17:08 11/26/16 17:08 11/26/16 17:08 - Laboratory Laboratory results interpreted by me: 11/26/16 11/26/16 11/26/16 13:10 13:10 13:10 RDW 20.0 H Chloride Carbon Dioxide AST Beta HCG, Quant 1343.10 H Urine Ascorbic Acid 40 H 11/26/16 13:10 RDW Chloride 108 H Carbon Dioxide 21 L AST 41 H Beta HCG, Quant Urine Ascorbic Acid Discharge <DARREN RESTREPO - Last Filed: 11/26/16 21:17> <MONO BRANCH - Last Filed: 11/26/16 22:23> - Discharge Clinical Impression: Ovarian cyst, Cramping affecting , antepartum Qualifiers: Weeks of gestation: less than 8 weeks Qualified Code(s): Z3A.01 - Less than 8 weeks gestation of Condition: Stable Disposition: HOME, SELF-CARE Instructions: ([facility]), Pelvic Pain in ([facility]), Ovarian Cyst ( [facility]) Forms: Return to Work Referrals: NAN CRISTINA MD [Primary Care Provider] - Follow up as needed Scribe Attestation: 11/26/16 22:23 I personally performed the services described in the documentation, reviewed and edited the documentation which was dictated to the scribe in my presence, and it accurately records my words and actions. (MONO BRANCH) Scribe Documentation - Scribe Written by Jaquelin:: Jaquelin Dotson, 11/26/2016 1539 acting as scribe for :: Jack <DARREN RESTREPO - Last Filed: 11/26/16 21:17>
[2016-11-26] MEDS ORDERED: ACETAMINOPHEN 325 MG TABLET PO ONE (16:26)
--- NOTE | 2016-11-26 16:38 | RADIOLOGY REPORT (SQ) ---
EXAM DESCRIPTION: U/S OB TRANSVAG W/DOPPLER COMPLETED DATE/TIME: 11/26/2016 4:09 pm REASON FOR STUDY: Abdominal pain COMPARISON: None. TECHNIQUE: Transvaginal static and realtime grayscale images acquired of the pelvis. Additional wild cted spectral and color Doppler images recorded. All images stored on PACs. [id number] LIMITATIONS: None. FINDINGS: UTERUS: No masses. No anomalies. GESTATIONAL SAC: Measures 5 weeks 1 day YOLK SAC: Not identified POLE: Not identified RIGHT ADNEXA: Right ovary was not visualized. No adnexal free fluid. No adnexal masses. LEFT ADNEXA: Normal ovary with normal vascular flow. No adnexal free fluid. Left ovarian cyst is identified measuring 2.3 x 2.1 x 1.7 cm FREE FLUID: None. OTHER: No other significant finding. IMPRESSION: POSSIBLE EARLY INTRAUTERINE . BHCG LEVEL APPROPRIATE FOR ENDOMETRIAL FINDINGS. CONSIDER F/U BHCG AND/OR ULTRASOUND FOR VERIFICATION AND TO EXCLUDE ECTOPIC . Trimester of : First - 0 to 13 weeks. TECHNICAL DOCUMENTATION: JOB ID: [id number] [employer]- All Rights Reserved
[2016-11-26 17:10] VITALS: BP 119/87
== END 2016-11-26 17:08 | disposition home or self-care (01) ==
LOC: ER 12:20
DX: N83.202 Unspecified ovarian cyst, left side (principal); R10.9 Unspecified abdominal pain; Z3A.01 Less than 8 weeks gestation of pregnancy
CPT/HCPCS: 99284; 36415; 84702; 85025; 80053; 81001; 76817; 93976; J3490; J7030

== ENCOUNTER 2016-12-16 07:43 | Day surgery (SDC) | payer MEDICAID ==
[2016-12-16] MEDS ORDERED: METRONIDAZOLE 500 MG/NS RTU 100 ML IV ONE (08:06)
[2016-12-16 08:30] LABS: ABSOLUTE EOSINOPHILS # (AUTO) 0.1 10^3/uL (0.0-0.6); ABSOLUTE LYMPHOCYTES (AUTO) 1.4 10^3/uL (0.5-4.7); ABSOLUTE MONOCYTES (AUTO) 0.6 10^3/uL (0.1-1.4); ABSOLUTE NEUT (AUTO) 3.6 10^3/uL (1.7-8.2); BASOPHILS % (AUTO) 0.6 % (0-2); HEMATOCRIT 41.1 % (36.0-47.0); HEMOGLOBIN 13.5 g/dL (12.0-15.5); HGB HCT DIFFERENCE -0.6; LYMPHOCYTES % (AUTO) 24.3 % (13-45); MEAN CORPUSCULAR HEMOGLOBIN 28.5 pg (27.0-33.4); MEAN CORPUSCULAR HGB CONC 32.8 g/dL (32.0-36.0); MEAN CORPUSCULAR VOLUME 87 fl (80-97); RED BLOOD COUNT 4.72 10^6/uL (3.72-5.28); RED CELL DISTRIBUTION WIDTH 18.9 % (11.5-14.0); SEGMENTED NEUTROPHILS % (AUTO) 64.1 % (42-78); WHITE BLOOD COUNT 5.6 10^3/uL (4.0-10.5)
[2016-12-16] MEDS ORDERED: MISOPROSTOL 0.2 MG TABLET ONE (09:12)
[2016-12-16] MEDS ORDERED: METHYLERGONOVINE MALEATE INJ/PF 0.2 MG/1 ML AMPULE ONE (09:13)
[2016-12-16] MEDS ORDERED: LIDOCAINE 1% INJ-PF (10 MG/ML) 30 ML SDV ONE (09:15)
--- NOTE | 2016-12-16 09:27 | EKG REPORT ---
SEVERITY:- ABNORMAL ECG - SINUS RHYTHM ABNORMAL Q SUGGESTS ANTEROSEPTAL INFARCT No sig change.from prior ekg : Confirmed by: Chandra Hardwick 16-Dec-2016 09:26:44
[2016-12-16] MEDS ORDERED: KETOROLAC TROMETHAMINE 60 MG/2 ML SDV ONE (10:40)
[2016-12-16] MEDS ORDERED: MIDAZOLAM 2 MG/2 ML INJ ONE (12:48)
[2016-12-16] MEDS ORDERED: FENTANYL CITRATE INJ/PF 100 MCG/2 ML AMPUL ONE (12:48)
[2016-12-16] MEDS ORDERED: PROPOFOL INJ 200 MG/20 ML VIAL IV ONE (12:49)
[2016-12-16] MEDS ORDERED: ONDANSETRON HCL INJ/PF 4 MG/2 ML SDV ONE (12:49)
[2016-12-16] MEDS ORDERED: ACETAMINOPHEN 100 ML IV ONE (12:49)
[2016-12-16] MEDS ORDERED: PROMETHAZINE HCL INJ 25 MG/1 ML VIAL IV PRN ×2 (13:17)
[2016-12-16] MEDS ORDERED: MEPERIDINE HCL/PF INJ 25 MG/1 ML DISP.SYRIN IV PRN (13:17)
[2016-12-16] MEDS ORDERED: FENTANYL CITRATE INJ/PF 100 MCG/2 ML AMPUL IV PRN ×3 (13:17)
[2016-12-16] MEDS ORDERED: MORPHINE SULFATE 10 MG/ML INJ IV PRN (13:17)
[2016-12-16] MEDS ORDERED: DIPHENHYDRAMINE HCL 50 MG/ML VIAL IV PRN (13:17)
[2016-12-16] MEDS: FENTANYL CITRATE INJ/PF 100 MCG/2 ML AMPUL ONE ×2 (13:55→14:02)
[2016-12-16] MEDS ORDERED: HYDROMORPHONE HCL INJ/PF 2 MG/ML AMPULE IV PRN (14:11)
[2016-12-16] MEDS ORDERED: OXYCODONE HCL IR 5 MG TABLET PO PRN ×2 (14:13)
[2016-12-16] MEDS ORDERED: RINGERS SOLUTION,LACTATED 1,000 ML IV PRN (14:14)
[2016-12-16 14:15] LABS: APPEARANCE,URINE CLEAR; BILIRUBIN,URINE NEGATIVE (NEGATIVE); GLUCOSE, URINE NEGATIVE (NEGATIVE); KETONES,URINE 100 mg/dL (NEGATIVE)
[2016-12-16 14:16] LABS: LEUKOCYTE ESTERASE,URINE TRACE (NEGATIVE); NITRITE,URINE NEGATIVE (NEGATIVE); PROTEIN,URINE 30 mg/dL (NEGATIVE); RBC,URINE 0-1 /HPF; URINE SPECIFIC GRAVITY 1.028; UROBILINOGEN,URINE NEGATIVE mg/dL (<2.0)
--- NOTE | 2016-12-16 15:17 | RADIOLOGY REPORT (SQ) ---
EXAM DESCRIPTION: U/S NON-OB PELVIS LTD W/O DOP COMPLETED DATE/TIME: 12/16/2016 2:21 pm REASON FOR STUDY: U/S GUIDANCE FOR D C O02.1 MISSED COMPARISON: None. TECHNIQUE: Dynamic and static grayscale images acquired during D and C of the uterus via transabdomi nal approach and recorded on PACS. Additional selected color Doppler and spectral images recorded. LIMITATIONS: None. FINDINGS: Intra procedural ultrasound was performed during D and C. Cine clip images demonstrate the vacuum probe within the endometrial canal. No retained products of conception are identified on the final cine clip images. Ovaries were not evaluated. IMPRESSION: Intra procedural pelvic ultrasound TECHNICAL DOCUMENTATION: JOB ID: [id number] [employer]- All Rights Reserved
[2016-12-16 16:22] VITALS: BP 119/76
--- NOTE | 2016-12-17 15:41 | OPERATIVE REPORT E ---
Operative Report NAME: EARLE MARKHAM : 1980 AGE: 36Y DATE OF SURGERY: ROOM: PREOPERATIVE DIAGNOSIS: MISSED WITH POSSIBLE GESTATIONAL TROPHOBLASTIC DISEASE. POSTOPERATIVE DIAGNOSIS: MISSED WITH POSSIBLE GESTATIONAL TROPHOBLASTIC DISEASE. OPERATION: Suction D and C under ultrasound guidance. SURGEON: BLANQUITA CALHOUN M.D. ANESTHESIA: Conscious sedation. EBL: 50 mL. SPECIMEN TO PATHOLOGY: Products of conception. FINDINGS: On ultrasound, there was a small gestational sac with a large amount of placental tissue which was some vacuous in nature. At the end of the procedure, the uterine cavity appeared clean. PROCEDURE: After discussing risks, benefits and alternatives of the procedure, this patient was taken to the operating room where an initial ultrasound was done and the patient visualized that. She then underwent conscious sedation and was positioned in the dorsal lithotomy position, prepped and draped in the standard fashion. A speculum was placed in the vagina and the anterior aspect of the cervix grasped with a single tooth tenaculum. A paracervical block was obtained using a total of 10 mL of 1% lidocaine. The cervix was then serially dilated to allow for passage of a #10 curved curette. Under ultrasound guidance, a #10 curved curette was passed into the uterine cavity and suction D and C was performed in the standard fashion. A blunt curette was then used to confirm that the cavity felt clean and the suction curette passed one more time. The instruments were removed from the vagina at that point after ensuring hemostasis of the tenaculum site. 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 She was taken out of the dorsal lithotomy and to recovery in stable condition. All sponge, needle, lap and instrument counts were correct x2. DICTATING PHYSICIAN: BLANQUITA CAHLOUN M.D. [id number] PHY#: [id number] [id number] JOB#: [id number] ACCT: [id number] cc:BLANQUITA CALHOUN M.D. >
== END 2016-12-16 15:50 | disposition home or self-care (01) ==
LOC: OROUT 07:43
PROVIDERS: ATTEND Specialist
PROC: 10D17ZZ Extraction of Products of Conception, Retained, Via Natural or Artificial Opening (ICD-10-PCS; principal; 2016-12-16 11:00)
DX: O02.1 Missed abortion (principal); J45.909 Unspecified asthma, uncomplicated; E66.9 Obesity, unspecified; D64.9 Anemia, unspecified; K21.9 Gastro-esophageal reflux disease without esophagitis; Z68.38 Body mass index [BMI] 38.0-38.9, adult; Z79.51 Long term (current) use of inhaled steroids; Z87.891 Personal history of nicotine dependence
CPT/HCPCS: 86900; 86901; 36415; 86870; 86850; 85025; 81001; 88305 ×2; 76857; 93005; 93010; 59820; J2790; J2250; J1885; J3010; J3490; J2210; J2405; J2704; J0131; 1965

== ENCOUNTER 2018-11-08 14:58 | Emergency (ER) | payer SELFPAY ==
[2018-11-08] MEDS ORDERED: KETOROLAC TROMETHAMINE 60 MG/2 ML SDV IM ONE (15:42)
--- NOTE | 2018-11-08 15:45 | ER Document Report ---
ED Medical Screen (RME) - General Chief Complaint: Abdominal Pain Stated Complaint: ABDOMINAL PAIN Time Seen by Provider: 11/08/18 15:38 Primary Care Provider: NAN CRISTINA MD [Primary Care Provider] - Follow up as needed Mode of Arrival: Ambulatory Information source: Patient Notes: Patient presents emergency department with complaints of right upper quad abdom inal pain that started last night. Reports multiple times of vomiting. Denies nausea at this time declines antinausea medicine. Reports back pain upper back pain and chest pain when she moves. Patient gives history of recent evaluation in [place] for possible ascending appendicitis. During the workup they discovered multiple ovarian cyst and possibly diverticulosis. Patient just moved here from [place]. Right upper quad abdominal pain tender to palpation. No complaints of pain to her back with palpation. Denies pain with void. Denies chest pain at this time. Reports it occurs when she moves. Does have history of reflux. I have greeted and performed a rapid initial assessment of this patient. A comprehensive ED assessment and evaluation of the patient, analysis of test results and completion of the medical decision making process will be conducted by additional ED providers. Dictation of this chart was performed using voice recognition software; therefore, there may be some unintended grammatical errors. TRAVEL OUTSIDE OF THE [place] IN LAST 30 DAYS: No - Related Data Allergies/Adverse Reactions: No Known Allergies Allergy (Verified 11/08/18 14:59) Past Medical History - Past Medical History Cardiac Medical History: Denies: Hx Coronary Artery Disease, Hx Heart Attack, Hx Hypertension Pulmonary Medical History: Reports: Hx Asthma Denies: Hx Bronchitis, Hx COPD, Hx Pneumonia Neurological Medical History: Denies: Hx Cerebrovascular Accident, Hx Seizures Renal/ Medical History: Denies: Hx Peritoneal Dialysis Musculoskeltal Medical History: Denies Hx Arthritis Past Surgical History: Reports: Hx Hysterectomy - Immunizations Hx Diphtheria, Pertussis, Tetanus Vaccination: Yes Physical Exam - Vital signs Vitals: Temp Pulse Resp BP Pulse Ox 98.2 F 118 H 23 H 143/99 H 96 11/08/18 15:04 11/08/18 15:04 11/08/18 15:04 11/08/18 15:04 11/08/18 15:04 Course - Vital Signs Vital signs: Temp Pulse Resp BP Pulse Ox 98.2 F 118 H 23 H 143/99 H 96 11/08/18 15:04 11/08/18 15:04 11/08/18 15:04 11/08/18 15:04 11/08/18 15:04 Doctor's Discharge - Discharge Referrals: NAN CRISTINA MD [Primary Care Provider] - Follow up as needed
--- NOTE | 2018-11-08 16:02 | RADIOLOGY REPORT (SQ) ---
EXAM DESCRIPTION: CHEST 2 VIEWS COMPLETED DATE/TIME: 11/08/2018 3:55 pm REASON FOR STUDY: cp, back pain, ruq pain COMPARISON: 10/31/2011. EXAM PARAMETERS: NUMBER OF VIEWS: two views TECHNIQUE: Digital Frontal and Lateral radiographic views of the chest acquired. RADIATION DOSE: NA LIMITATIONS: none FINDINGS: LUNGS AND PLEURA: No opacities, masses or pneumothorax. No pleural effusion. MEDIASTINUM AND HILAR STRUCTURES: No masses or contour abnormalities. HEART AND VASCULAR STRUCTURES: Heart normal size. No evidence for failure. BONES: No acute findings. HARDWARE: None in the chest. OTHER: No other significant finding. IMPRESSION: NO ACUTE RADIOGRAPHIC FINDING IN THE CHEST. TECHNICAL DOCUMENTATION: JOB ID: [id number] [employer]- All Rights Reserved Reading location - IP/workstation name: [email or web address]
[2018-11-08 16:42] LABS: ABSOLUTE EOSINOPHILS # (AUTO) 0.1 10^3/uL (0.0-0.6); ABSOLUTE LYMPHOCYTES (AUTO) 1.5 10^3/uL (0.5-4.7); ABSOLUTE MONOCYTES (AUTO) 0.8 10^3/uL (0.1-1.4); ABSOLUTE NEUT (AUTO) 6.4 10^3/uL (1.7-8.2); BASOPHILS % (AUTO) 0.5 % (0-2); EOSINOPHILS % (AUTO) 1.1 % (0-6); HEMATOCRIT 45.9 % (36.0-47.0); HEMOGLOBIN 15.7 g/dL (12.0-15.5); LYMPHOCYTES % (AUTO) 17.1 % (13-45); MEAN CORPUSCULAR HEMOGLOBIN 30.6 pg (27.0-33.4); MEAN CORPUSCULAR HGB CONC 34.3 g/dL (32.0-36.0); MEAN CORPUSCULAR VOLUME 89 fl (80-97); MONOCYTES % (AUTO) 9.3 % (3-13); PLATELET COUNT 209 10^3/uL (150-450); RED BLOOD COUNT 5.14 10^6/uL (3.72-5.28); RED CELL DISTRIBUTION WIDTH 13.6 % (11.5-14.0); TOTAL CELLS COUNTED % (AUTO) 100 %; WHITE BLOOD COUNT 8.9 10^3/uL (4.0-10.5)
[2018-11-08 16:46] LABS: APPEARANCE,URINE CLOUDY; BILIRUBIN,URINE NEGATIVE (NEGATIVE); GLUCOSE, URINE NEGATIVE (NEGATIVE); KETONES,URINE 20 mg/dL (NEGATIVE); LEUKOCYTE ESTERASE,URINE SMALL (NEGATIVE); NITRITE,URINE NEGATIVE (NEGATIVE); PROTEIN,URINE 100 mg/dL (NEGATIVE); URINE SPECIFIC GRAVITY 1.024; UROBILINOGEN,URINE NEGATIVE mg/dL (<2.0)
[2018-11-08 16:47] LABS: COLOR,URINE YELLOW
[2018-11-08 16:59] LABS: ALANINE AMINOTRANSFERASE 29 U/L (9-52); ALBUMIN 4.7 g/dL (3.5-5.0); ALKALINE PHOSPHATASE 56 U/L (38-126); ANION GAP 11 (5-19); ASPARTATE AMINO TRANSFERASE 24 U/L (14-36); BILIRUBIN,DIRECT 0.2 mg/dL (0.0-0.4); BILIRUBIN,TOTAL 0.4 mg/dL (0.2-1.3); BLOOD UREA NITROGEN 9 mg/dL (7-20); CALCIUM 10.2 mg/dL (8.4-10.2); CARBON DIOXIDE 28 mmol/L (22-30); CHLORIDE 103 mmol/L (98-107); GLUCOSE 92 mg/dL (75-110); LIPASE 61.5 U/L (23-300); POTASSIUM 4.2 mmol/L (3.6-5.0); SODIUM 141.9 mmol/L (137-145); TOTAL PROTEIN 7.9 g/dL (6.3-8.2)
--- NOTE | 2018-11-08 17:12 | RADIOLOGY REPORT (SQ) ---
EXAM DESCRIPTION: U/S ABDOMEN LIMITED W/O DOP COMPLETED DATE/TIME: 11/08/2018 4:38 pm REASON FOR STUDY: cp, back pain, ruq pain COMPARISON: None. TECHNIQUE: Dynamic and static grayscale images acquired of the abdomen and recorded on PACS. Additio nal selected color Doppler and spectral images recorded. LIMITATIONS: None. FINDINGS: PANCREAS: No masses. Visualized pancreatic duct normal caliber. LIVER: No masses. Echotexture normal. LIVER VASCULATURE: Normal directional flow of the main portal vein and hepatic veins. GALLBLADDER: No stones. Normal wall thickness. No pericholecystic fluid. ULTRASOUND-DETECTED MURO'S SIGN: Negative. INTRAHEPATIC DUCTS AND COMMON DUCT: CBD and intrahepatic ducts normal caliber. No filling defects. INFERIOR VENA CAVA: Normal flow. AORTA: No aneurysm identified. RIGHT KIDNEY: Normal size. Normal echogenicity. No solid or suspicious masses. No hydronephros is. No calcifications. PERITONEAL AND RIGHT PLEURAL SPACE: No ascites or effusions. OTHER: No other significant findings. IMPRESSION: NO ACUTE FINDINGS. TECHNICAL DOCUMENTATION: JOB ID: [id number] [employer]- All Rights Reserved Reading location - IP/workstation name: [email or web address]
[2018-11-08] MEDS ORDERED: METOCLOPRAMIDE HCL ORAL SOLN 10 MG/10 ML UDCUP PO ONE (17:48)
[2018-11-08] MEDS ORDERED: LIDOCAINE 2% VISCOUS SOLN 20 ML UDCUP PO ONE (17:48)
[2018-11-08] MEDS ORDERED: MAG HYDROX/AL HYDROX/SIMETH SUSP 30 ML UDCUP PO ONE (17:48)
[2018-11-08 17:53] VITALS: BP 139/88
--- NOTE | 2018-11-08 17:54 | ER Document Report ---
ED GI/ - General Chief Complaint: Abdominal Pain Stated Complaint: ABDOMINAL PAIN Time Seen by Provider: 11/08/18 15:38 Primary Care Provider: NAN CRISTINA MD [Primary Care Provider] - Follow up as needed OCTAVIA MENA MD [ACTIVE STAFF] - Follow up as needed Mode of Arrival: Ambulatory Information source: Patient Notes: 38-year-old female presented to ED for complaint of right upper quadrant abdominal pain that started last night. She states she has had multiple episodes of vomiting today. She states she also has pain to her upper back and chest when she moves. Patient states she had an exam and another states that told her that she may have appendicitis. She states that they found ovarian cyst and diverticulosis while she was in this exam. She has no right lower quadrant tenderness at this time. Patient does states she has a history of reflux and hiatal hernia. TRAVEL OUTSIDE OF THE [place] IN LAST 30 DAYS: No - HPI Patient complains to provider of: Abdominal pain, Vomiting Onset: Yesterday Timing/Duration: Intermittent Quality of pain: Sharp Severity at maximum: Moderate Severity in ED: Moderate Pain Level: 4 Location: RUQ Vaginal bleeding (Compared to normal period): None Associated symptoms: Nausea, Vomiting Exacerbated by: Movement, Walking, Food Relieved by: Denies Similar symptoms previously: Yes Recently seen / treated by doctor: No - Related Data Allergies/Adverse Reactions: No Known Allergies Allergy (Verified 11/08/18 14:59) Past Medical History - General Information source: Patient - Social History Smoking Status: Current Every Day Smoker Chew tobacco use (# tins/day): No Smoking Education Provided: Yes - 4 minutes Frequency of alcohol use: None Drug Abuse: None Lives with: Family Family History: Reviewed & Not Pertinent Patient has suicidal ideation: No Patient has homicidal ideation: No - Past Medical History Cardiac Medical History: Reports: None Pulmonary Medical History: Reports: Hx Asthma EENT Medical History: Reports: None Neurological Medical History: Reports: None Endocrine Medical History: Reports: None Renal/ Medical History: Reports: Hx Ovarian Cysts Malignancy Medical History: Reports: None GI Medical History: Reports: Hx Gastroesophageal Reflux Disease, Hx Hiatal Hernia Musculoskeletal Medical History: Reports None Skin Medical History: Reports None Psychiatric Medical History: Reports: None Traumatic Medical History: Reports: None Infectious Medical History: Reports: None Past Surgical History: Reports: Hx Hysterectomy - Immunizations Hx Diphtheria, Pertussis, Tetanus Vaccination: Yes Review of Systems - Review of Systems Constitutional: No symptoms reported EENT: No symptoms reported Cardiovascular: No symptoms reported Respiratory: No symptoms reported Gastrointestinal: Abdominal pain, Nausea, Vomiting Genitourinary: No symptoms reported Female Genitourinary: No symptoms reported Musculoskeletal: No symptoms reported Skin: No symptoms reported Hematologic/Lymphatic: No symptoms reported Neurological/Psychological: No symptoms reported -: Yes All other systems reviewed and negative Physical Exam - Vital signs Vitals: Temp Pulse Resp BP Pulse Ox 98.2 F 118 H 23 H 143/99 H 96 11/08/18 15:04 11/08/18 15:04 11/08/18 15:04 11/08/18 15:04 11/08/18 15:04 Interpretation: Normal - General General appearance: Appears well, Alert - HEENT Head: Normocephalic, Atraumatic Eyes: Normal Pupils: PERRL - Respiratory Respiratory status: No respiratory distress Chest status: Nontender Breath sounds: Normal Chest palpation: Normal - Cardiovascular Rhythm: Regular Heart sounds: Normal auscultation Murmur: No - Abdominal Inspection: Normal Distension: No distension Bowel sounds: Normal Tenderness: Tender. No: Amaro's sign, Guarding, Rebound Organomegaly: No organomegaly - Back Back: Normal, Nontender - Extremities General upper extremity: Normal inspection, Nontender, Normal color, Normal ROM, Normal temperature General lower extremity: Normal inspection, Nontender, Normal color, Normal ROM, Normal temperature, Normal weight bearing. No: Corona's sign - Neurological Neuro grossly intact: Yes Cognition: Normal Orientation: AAOx4 Gualberto Coma Scale Eye Opening: Spontaneous Gualberto Coma Scale Verbal: Oriented Gualberto Coma Scale Motor: Obeys Commands Lowber Coma Scale Total: 15 Speech: Normal Motor strength normal: LUE, RUE, LLE, RLE Sensory: Normal - Psychological Associated symptoms: Normal affect, Normal mood - Skin Skin Temperature: Warm Skin Moisture: Dry Skin Color: Normal Course - Re-evaluation Re-evalutation: 11/09/18 03:07 Patient was treated with Toradol before I examined her. She states that this did not help. She was then treated with a GI cocktail of Reglan Maalox and viscous lidocaine. She was discharged home with nausea medicine and Reglan. Patient verbalized understanding and agree with treatment plan that she would need to follow-up with GI if she continued to have pain. Written report as well as explanation of x-ray and ultrasound were given to patient. - Vital Signs Vital signs: Temp Pulse Resp BP Pulse Ox 98.4 F 79 14 139/88 H 99 11/08/18 17:52 11/08/18 17:52 11/08/18 17:52 11/08/18 17:52 11/08/18 17:52 - Laboratory Result Diagrams: 11/08/18 16:15 11/08/18 16:15 Laboratory results interpreted by me: 11/08/18 11/08/18 16:15 16:15 Hgb 15.7 H Urine Protein 100 H Urine Ketones 20 H Ur Leukocyte Esterase SMALL H - Diagnostic Test Radiology reviewed: Image reviewed, Reports reviewed Discharge - Discharge Clinical Impression: Abdominal pain Qualifiers: Abdominal location: right upper quadrant Qualified Code(s): R10.11 - Right upper quadrant pain Nausea & vomiting Qualifiers: Vomiting type: unspecified Vomiting Intractability: non-intractable Qualified Code(s): R11.2 - Nausea with vomiting, unspecified Condition: Stable Disposition: HOME, SELF-CARE Instructions: Family Physicians / Practices Additional Instructions: Abdominal Pain There are many causes of abdominal pain. Pain can mean a serious problem requiring surgery (such as appendicitis). It can also be an innocent problem that goes away on its own (such as a viral infection). Often, time must pass to determine the cause of pain. The physician does not feel that hospitalization is necessary, at present. Things may change within the next 24 hours. Call the doctor or come back for re-examination if any problems occur, such as: (1) Pain that becomes more severe, steady, or becomes concentrated in one specific area. Also, pain that is more severe with movement or coughing. (2) Vomiting that persists or becomes more frequent. (3) Blood in the vomitus, urine, or bowel movements. Blood in the stool may have a tarry or black appearance. (4) Shaking chills or fever greater than 100 degrees F. (5) The abdomen becomes more distended or swollen. (6) Bowel movements cease. (7) Failure to improve as expected. VOMITING: Vomiting (or nausea without vomiting) can be caused by many other different problems. It can mean that something's wrong with the stomach, such as ulcers or inflammation or the intestinal tract, such as appendicitis. But it can also be a symptom of a problem that has nothing to do with the stomach or intestines. Vomiting is common with severe headaches, earaches, tonsillitis, and kidney infections, etc. We see it with pneumonia or heart attacks. Drugs can cause nausea and vomiting. Many abdominal problems cause vomiting; for example, gallstones, kidney stones, pancreatitis, and intestinal obstruction (blocked bowels). In most cases, curing the vomiting depends on fixing the problem that caused it. For temporary relief, we may use an anti-nausea medicine. For home use, we can prescribe suppositories, chewable pills, pills that dissolve in the mouth, or liquid anti-nausea drugs. If the vomiting seems to be caused by a problem in the stomach, acid-suppressing drugs may be prescribed as well. It's important to avoid dehydration. Sip small amounts of clear liquids (soft drinks, tea, broth, etc) . Try to take fluids frequently even if you are vomiting to prevent dehydration. Take increasing amounts of fluid and when liquids are being consumed successfully, advance to small amounts of bland food (toast, soups, mashed potatoes, etc.) until you are able to resume a regular diet. Avoid aspirin, tobacco, and alcohol. If the vomiting worsens, if the problem that's making you vomit worsens, or if there's evidence of bleeding in the stomach (such as black, tarry stool, or bloody or black vomit), you should return immediately. Also, return if abdominal pain worsens or becomes localized to one area or you develop high fever. Call your doctor if you aren't improved in 24 hours. VIRAL SYNDROME: The physician has diagnosed a viral infection. Viruses not only cause "colds," but can cause many different symptoms including generalized aching, fever, headache, cough, diarrhea, nausea, vomiting, and fatigue. The treatment, for the most part, is simply relief of symptoms. This means that antibiotics are usually not given. Rest, fluids, pain medications and, occasionally, medication for the specific symptoms that are most bothersome will be prescribed. Use good handwashing to avoid passing the virus to others. Shared toys should be cleaned with disinfectant. Clean the toilets, sinks, and counter surfaces in bathrooms. Launder clothing in hot water. Contact the physician if you develop any new or unusual symptoms such as severe headache, stiff neck, high fever, chest pain, productive cough, or shortness of breath. You should be rechecked if you don't see marked improvement within seven to 10 days. ANTINAUSEA MEDICATION: You have been given a medication to suppress nausea and vomiting. This type of medication can be given as a shot, pill, or suppository. It will usually last for many hours. Pills and shots usually last six to eight hours. For the typical illness, only one or two doses of the medication may be necessary. Mild lightheadedness may occur. This type of medicine can cause drowsiness. Do not drive or operate dangerous machinery while under its influence. Do not mix with alcohol. See your doctor at once if you have muscle spasms or tightness, or uncontrollable motions (particularly of the neck, mouth, or jaw). Persistent vomiting or severe lightheadedness should also be evaluated by the physician. REGLAN (METOCLOPRAMIDE): Reglan has been prescribed. This medicine affects the stomach and intestines. It can be used to treat nausea and vomiting, to prevent reflux of stomach acid up into the esophagus, or to increase the contractions of the stomach and intestines. It is often prescribed for esophagitis, and for paralysis of the stomach in diabetics. Reglan can cause either mild restlessness or drowsiness. You should contact the doctor at once if you become extremely restless, anxious, or cannot sleep, or if you develop uncontrollable motions of the lips, tongue, or jaw. Do not take alcohol with this medicine. Do not drive or operate machinery until you have been taking this medicine long enough to know how it affects you. Call the doctor if you develop abdominal pains, lightheadedness, black stool, or blood in the stool or vomitus. Toradol Injection You have been given an injection of ketorolac tromethamine (Toradol). This is an excellent, safe drug for pain control. It also has potent antiinflammatory action. You should have significant pain relief within about one hour. Toradol is not addicting and is non-sedating. It does not interfere with driving or work. Call or return if you develop itching, hives, shortness of breath, or rash. FOLLOW-UP CARE: If you have been referred to a physician for follow-up care, call the physicians office for an appointment as you were instructed or within the next two days. If you experience worsening or a significant change in your symptoms, notify the physician immediately or return to the Emergency Department at any time for re-evaluation. Prescriptions: Metoclopramide HCl [Reglan 10 mg Tablet] 10 mg PO Q6HP PRN #14 tablet PRN Reason: Ondansetron [Zofran Odt 4 mg Tablet] 1 tab PO Q6H #15 tab.rapdis Forms: Elevated Blood Pressure, Smoking Cessation Education Referrals: NAN CRISTINA MD [Primary Care Provider] - Follow up as needed OCTAVIA MENA MD [ACTIVE STAFF] - Follow up as needed
== END 2018-11-08 18:06 | disposition home or self-care (01) ==
LOC: ER 14:58
DX: R10.11 Right upper quadrant pain (principal); R11.2 Nausea with vomiting, unspecified; R07.9 Chest pain, unspecified; M54.89 Other dorsalgia; J45.909 Unspecified asthma, uncomplicated; F17.200 Nicotine dependence, unspecified, uncomplicated; Z87.19 Personal history of other diseases of the digestive system; Z87.42 Personal history of other diseases of the female genital tract; Z90.710 Acquired absence of both cervix and uterus
CPT/HCPCS: 99406; 99284; 96372; 36415; 83690; 85025; 81025; 80053; 81001; 71046; 76705; J1885; J3490

== ENCOUNTER 2018-11-23 04:03 | Emergency (ER) | payer MEDICAID ==
[2018-11-23 04:08] VITALS: BP 139/88
== END 2018-11-23 05:05 | disposition left against medical advice (07) ==
LOC: ER 04:03
DX: Z53.21 Procedure and treatment not carried out due to patient leaving prior to being seen by health care provider (principal)

== ENCOUNTER 2020-03-29 22:33 | Emergency (ER) | payer SELFPAY ==
--- NOTE | 2020-03-29 23:36 | ER Document Report ---
ED Medical Screen (RME) - General Chief Complaint: Abdominal Pain Stated Complaint: ABDOMINAL PAIN Primary Care Provider: NAN CRISTINA MD [Primary Care Provider] - Follow up as needed Notes: Patient is a 39-year-old white female with a history of prior D&Cs and miscarriages who presents the emergency department the chief complaint of pelvic pain. She states every time she gets her menses she gets this pain associated. She states today is day 2 of her menses and she is having significant pain. She states recently with each subsequent menstrual cycle the pain seems to intensify. She states that involves the entire menstrual cycle, after the cycle is over the pain dissipates but she is tender in all the areas. She admits to associated swelling with the menstrual cycle and pain. Denies any excessive vaginal bleeding or discharge, clots or tissue. Reports that she has some difficulty urinating as well during these episodes. Denies any burning with urination. No back pain, chest pain or shortness of breath. No fevers. I have treated and performed a rapid initial assessment of this patient. A comprehensive ED assessment and evaluation of the patient, analysis of test results and completion of medical decision making process will be conducted by additional ED providers. PHYSICAL EXAMINATION: GENERAL: Well-appearing, well-nourished and in no acute distress. A&Ox4. Answers questions appropriately. TRAVEL OUTSIDE OF THE [place] IN LAST 30 DAYS: No - Related Data Allergies/Adverse Reactions: No Known Allergies Allergy (Verified 03/29/20 23:25) Past Medical History - Social History Frequency of alcohol use: None Drug Abuse: None - Past Medical History Cardiac Medical History: Denies: Hx Coronary Artery Disease, Hx Heart Attack, Hx Hypertension Pulmonary Medical History: Reports: Hx Asthma Denies: Hx Bronchitis, Hx COPD, Hx Pneumonia Neurological Medical History: Denies: Hx Cerebrovascular Accident, Hx Seizures Renal/ Medical History: Reports: Hx Ovarian Cysts. Denies: Hx Peritoneal Dialysis GI Medical History: Reports: Hx Gastroesophageal Reflux Disease, Hx Hiatal Hernia Musculoskeltal Medical History: Denies Hx Arthritis Past Surgical History: Reports: Hx Hysterectomy - Immunizations Hx Diphtheria, Pertussis, Tetanus Vaccination: Yes Physical Exam - Vital signs Vitals: Temp Pulse Resp BP Pulse Ox 99.2 F 94 16 148/97 H 100 03/29/20 22:50 03/29/20 22:50 03/29/20 22:50 03/29/20 22:50 03/29/20 22:50 Course - Vital Signs Vital signs: Temp Pulse Resp BP Pulse Ox 99.2 F 94 16 148/97 H 100 03/29/20 22:50 03/29/20 22:50 03/29/20 22:50 03/29/20 22:50 03/29/20 22:50 Doctor's Discharge - Discharge Referrals: NAN CRISTINA MD [Primary Care Provider] - Follow up as needed
[2020-03-30 00:40] LABS: APPEARANCE,URINE SLIGHTLY-CLOUDY; BILIRUBIN,URINE NEGATIVE (NEGATIVE); COLOR,URINE YELLOW; GLUCOSE, URINE NEGATIVE (NEGATIVE); KETONES,URINE NEGATIVE (NEGATIVE); PROTEIN,URINE NEGATIVE (NEGATIVE); URINE SPECIFIC GRAVITY 1.026
--- NOTE | 2020-03-30 00:43 | RADIOLOGY REPORT (SQ) ---
EXAM DESCRIPTION: US PELVIS COMPLETED DATE/TME: 03/29/2020 23:33 CLINICAL HISTORY: 39 years, Female, pelvic pain COMPARISON: None. TECHNIQUE: LIMITATIONS: None. FINDINGS: There is a small amount of free fluid in the cul-de-sac. The ovaries are unremarkable. Blood flow was demonstrated in both ovaries with Doppler. The uterus measures 9.1 x 6 x 5.3 cm. There are no fibroids. The endometrial stripe measures 6.6 mm. IMPRESSION: Small amount of free fluid in the cul-de-sac. A ruptured ovarian cyst is a consideration. copyright 2010 [employer]- All Rights Reserved
[2020-03-30 00:51] LABS: ABSOLUTE EOSINOPHILS # (AUTO) 0.1 10^3/uL (0.0-0.6); ABSOLUTE MONOCYTES (AUTO) 0.8 10^3/uL (0.1-1.4); ABSOLUTE NEUT (AUTO) 6.2 10^3/uL (1.7-8.2); BASOPHILS % (AUTO) 0.4 % (0-2); EOSINOPHILS % (AUTO) 0.9 % (0-6); HEMATOCRIT 40.2 % (36.0-47.0); HEMOGLOBIN 13.9 g/dL (12.0-15.5); LYMPHOCYTES % (AUTO) 21.8 % (13-45); MEAN CORPUSCULAR HEMOGLOBIN 31.9 pg (27.0-33.4); MEAN CORPUSCULAR HGB CONC 34.7 g/dL (32.0-36.0); MEAN CORPUSCULAR VOLUME 92 fl (80-97); MONOCYTES % (AUTO) 8.5 % (3-13); PLATELET COUNT 230 10^3/uL (150-450); RED BLOOD COUNT 4.37 10^6/uL (3.72-5.28); SEGMENTED NEUTROPHILS % (AUTO) 68.4 % (42-78); TOTAL CELLS COUNTED % (AUTO) 100 %; WHITE BLOOD COUNT 9.1 10^3/uL (4.0-10.5)
[2020-03-30 01:15] LABS: ALKALINE PHOSPHATASE 56 U/L (38-126); ANION GAP 10 (5-19); ASPARTATE AMINO TRANSFERASE 20 U/L (14-36); BILIRUBIN,DIRECT 0.2 mg/dL (0.0-0.4); BILIRUBIN,TOTAL 0.5 mg/dL (0.2-1.3); BLOOD UREA NITROGEN 21 mg/dL (7-20); CARBON DIOXIDE 23 mmol/L (22-30); CHLORIDE 106 mmol/L (98-107); GLUCOSE 96 mg/dL (75-110); POTASSIUM 4.4 mmol/L (3.6-5.0); TOTAL PROTEIN 6.8 g/dL (6.3-8.2)
[2020-03-30] MEDS ORDERED: NAPROXEN 250 MG TABLET PO ONE (05:07)
--- NOTE | 2020-03-30 05:08 | ER Document Report ---
ED GI/ - General Chief Complaint: Abdominal Pain Stated Complaint: ABDOMINAL PAIN Time Seen by Provider: 03/30/20 04:17 Primary Care Provider: DOMINGO ANNA MD [ACTIVE STAFF] - Follow up as needed Information source: Patient Notes: 39-year-old female with no previous medical problems presents to the emergency room complaining of worsening pelvic pain with her menses. States every month the pain gets more more severe. States she started her cycle 2 days ago and the pain is gotten progressively worse. Has been taking Aleve with minimal relief. She denies any heavy bleeding or changes in her menstrual cycles. States she has not been to see an [facility] for her symptoms. TRAVEL OUTSIDE OF THE [place] IN LAST 30 DAYS: No - Related Data Allergies/Adverse Reactions: No Known Allergies Allergy (Verified 03/29/20 23:25) Past Medical History - General Information source: Patient - Social History Smoking Status: Current Every Day Smoker Frequency of alcohol use: None Drug Abuse: None Family History: Reviewed & Not Pertinent - Past Medical History Cardiac Medical History: Denies: Hx Coronary Artery Disease, Hx Heart Attack, Hx Hypertension Pulmonary Medical History: Reports: Hx Asthma Denies: Hx Bronchitis, Hx COPD, Hx Pneumonia Neurological Medical History: Denies: Hx Cerebrovascular Accident, Hx Seizures Renal/ Medical History: Reports: Hx Ovarian Cysts. Denies: Hx Peritoneal Dialysis GI Medical History: Reports: Hx Gastroesophageal Reflux Disease, Hx Hiatal Hernia Musculoskeletal Medical History: Denies Hx Arthritis Past Surgical History: Reports: Hx Hysterectomy - Immunizations Hx Diphtheria, Pertussis, Tetanus Vaccination: Yes Review of Systems - Review of Systems Constitutional: No symptoms reported Cardiovascular: No symptoms reported Respiratory: No symptoms reported Gastrointestinal: No symptoms reported Female Genitourinary: Last menstrual period - 03/29/2020, Other - Painful menstrual cycles Musculoskeletal: No symptoms reported Skin: No symptoms reported Neurological/Psychological: No symptoms reported -: Yes All other systems reviewed and negative Physical Exam - Vital signs Vitals: Temp Pulse Resp BP Pulse Ox 99.2 F 94 16 148/97 H 100 03/29/20 22:50 03/29/20 22:50 03/29/20 22:50 03/29/20 22:50 03/29/20 22:50 - Notes Notes: GENERAL: Mild acute distress, non-toxic appearance. HEAD: Normal with no signs of head trauma. EYES: PERRLA, EOMI, conjunctiva normal, no discharge. EARS: Hearing grossly intact. NOSE: Normal. THROAT: Oropharynx is normal. NECK: Normal range of motion, no tenderness, supple, no lymphadenopathy, No adenopathy, no JVD. CHEST: Clear breath sounds bilaterally. No wheezes, rales, or rhonchi. CARDIAC: Regular rate and rhythm. S1 and S2, without murmurs, gallops, or rubs. VASCULAR: No Edema. Peripheral pulses normal and equal in all extremities. ABDOMEN: Normal and soft with no tenderness, no masses or pulsatile masses. No organomegaly. Positive bowel sounds x4. No CVA tenderness noted bilaterally. GASTROINTESTINAL: Bowel sounds normal LYMPATHTIC: No lymphadenopathy noted. MUSCULOSKELETAL: Good range of motion of all major joints. Extremities without clubbing, cyanosis or edema. NEUROLOGICAL: Alert and oriented x 3. No focal sensory or strength deficits. Speech normal. Follows commands appropriately. PSYCHIATRIC: Normal Affect, judgement and mood. SKIN: Normal appearance with no rashes or lesions. Course - Re-evaluation Re-evalutation: 03/30/20 05:04 Patient is resting comfortably minimal pain on exam. Reviewed lab and u ltrasound findings with patient. Counseled to take naproxen as prescribed. Counseled on the importance of an outpatient follow-up with health department, [facility], or clinic for further evaluation and treatment of her worsening menstrual pain. Patient was provided with the on-call physician. Patient was given strict return to the emergency room guidelines. Return for any new or worsening symptoms. All questions were answered. Patient verbalized understanding and agrees with plan of care. 03/30/20 06:29 - Vital Signs Vital signs: Temp Pulse Resp BP Pulse Ox 98.2 F 81 16 125/71 100 03/30/20 05:20 03/30/20 05:20 03/30/20 05:20 03/30/20 05:20 03/30/20 05:20 - Laboratory Result Diagrams: 03/30/20 00:20 03/30/20 00:20 Laboratory results interpreted by me: 03/29/20 03/30/20 23:40 00:20 BUN 21 H Urine Urobilinogen 2.0 H - Diagnostic Test Radiology reviewed: Reports reviewed Discharge - Discharge Clinical Impression: Ruptured ovarian cyst, Menstrual pain Condition: Stable Disposition: HOME, SELF-CARE Instructions: Dysmenorrhea ([facility]), Ovarian Cyst ([facility]) Additional Instructions: Naproxen as prescribed. 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 Return to the emergency room for any new or worsening symptoms. Prescriptions: Naproxen 500 mg PO BID PRN #14 tablet PRN Reason: Referrals: DOMINGO ANNA MD [ACTIVE STAFF] - Follow up as needed
[2020-03-30 05:22] VITALS: BP 125/71
== END 2020-03-30 05:20 | disposition home or self-care (01) ==
LOC: ER 22:33
DX: R10.2 Pelvic and perineal pain (principal); N83.209 Unspecified ovarian cyst, unspecified side; F17.200 Nicotine dependence, unspecified, uncomplicated; Z90.710 Acquired absence of both cervix and uterus
CPT/HCPCS: 36415; 76856; 80053; 81001; 83690; 84703; 85025; 93976; 99285